=== PATIENT | female | born 1980 | race Caucasian/White ===

== ENCOUNTER 2019-11-23 08:02 | Day surgery (SDC) | payer OTHER ==
[2019-11-22 08:56] VITALS: BMI 25.9
[2019-11-23] MEDS ORDERED: IBUPROFEN 400 MG TABLET (FP) PO PRN (09:27)
[2019-11-23] MEDS ORDERED: ACETAMINOPHEN 325 MG TABLET (FP) PO PRN (09:27)
--- NOTE | 2019-11-23 09:27 | HP ---
History & Physical Update - History History: No Change - Physical Physical: No Change - Assessment Assessment: No Change - Plan Plan: No Change (NO change in HP)
[2019-11-23] MEDS ORDERED: MIDAZOLAM HCL 2 MG/2 ML SINGLE DOSE VIAL ONE (10:05)
[2019-11-23 12:01] VITALS: TEMP 98
[2019-11-23] MEDS ORDERED: ACETAMINOPHEN 325 MG TABLET (FP) ONE (13:17)
[2019-11-23] MEDS ORDERED: SUCCINYLCHOLINE CHLORIDE 200 MG/10 ML SYRINGE ONE (13:19)
[2019-11-23] MEDS ORDERED: PROPOFOL 20 ML ONE (13:19)
--- NOTE | 2019-11-23 14:04 | OP ---
Operative Note - Note: Operative Date: 11/23/19 Pre-Operative Diagnosis: submucosal myoma. anemia. menorrhagia Operation: hysteroscopic myomectomy. SUction DC Findings: Large submucowal myoma seen Post-Operative Diagnosis: Same as Pre-op Surgeon: Cynthia Huizar Anesthesia: General Estimated Blood Loss (mls): 50
[2019-11-23 14:25] VITALS: BP 126/76; PULSE 72
--- NOTE | 2019-11-24 09:40 | OP ---
DATE OF OPERATION: 11/23/2019 PREOPERATIVE DIAGNOSES: Submucosal myoma and anemia, menorrhagia. OPERATION: Hysteroscopic myomectomy, suction dilation and curettage. FINDINGS: A large submucosal myoma, approximately 3 cm, was seen. POSTOPERATIVE DIAGNOSES: Submucosal myoma and anemia, menorrhagia. SURGEON: Cynthia Huizar MD ANESTHESIA: General. ESTIMATED BLOOD LOSS: 50 mL. PROCEDURE: Patient was taken to the operating room and placed in dorsal lithotomy position, prepped and draped in the usual sterile fashion. Timeout was performed in accordance with hospital. regulations. Speculum was placed in the vagina. Anterior lip of the cervix grasped with a single-tooth tenaculum. Cervix was then dilated to accommodate the operative hysteroscope. Operative hysteroscope was inserted and visualization revealed a large 3-cm submucosal myoma. Cautery and cutting of the myoma were done. Large amounts of submucosal myoma were removed and submitted. Suction D&C was done. This procedure was repeated about 5 times. A large amount of myoma had been removed from the endometrial cavity. However, due to a deficit of approximately 800 mL procedure was stopped and most of the myoma had been removed. Some small amounts of myoma left inside, but procedure was stopped due to deficit . Will see how patient does and return to the operating room if a 2nd procedure is needed. All instruments were then removed after the final suction D&C was performed. Hemostasis was achieved. Estimated blood loss was 50 mL. Patient had tolerated procedure well and was taken to recovery room in stable condition. CYNTHIA HUIZAR M.D. [id number]
--- NOTE | 2019-11-24 18:12 | PATH ---
Surgical Pathology Report Patient Name: RADHA BROWER [facility]. Rec. #: [id number] /Age/Gender: 1980 (Age: 39) / F Account: [id number] Location: [facility] SURGICAL Taken: 11/23/2019 Received: 11/23/2019 Reported: 11/24/2019 Physicians: Cynthia Huizar M.D. Specimen(s) Received SUBMUCOSAL MYOMA/FIBROID Clinical History Submucosal leiomyoma of uterus Final Diagnosis SUBMUCOSAL MYOMA/FIBROID, HYSTEROSCOPIC MYOMECTOMY, SUCTION DILATION AND CURETTAGE: FRAGMENTS OF FIBROMUSCULAR TISSUE CONSISTENT WITH SUBMUCOSAL LEIOMYOMA, SECRETORY ENDOMETRIUM, AND SCANT BENIGN SQUAMOUS EPITHELIUM. Electronically Signed Jane Meyer M.D. Gross Description Received in formalin labeled "submucosal myoma/fibroid," is a 9 g, 5.5 x 4.5 x 0.7 cm aggregate of bower-pink fragments of firm tissue, consistent with morcellated fibroid. Contact Center Director sections are submitted in 5 cassettes. DL/11/23/2019 saudi/11/23/2019
== END 2019-11-23 14:27 | disposition home or self-care (01) ==
LOC: JASU-SURG 08:02
PROVIDERS: ATTEND Obstetrics & Gynecology
PROC: 0UDB8ZZ Extraction of Endometrium, Via Natural or Artificial Opening Endoscopic (ICD-10-PCS; 2019-11-23)
PROC: 0UB98ZZ Excision of Uterus, Via Natural or Artificial Opening Endoscopic (ICD-10-PCS; principal; 2019-11-23 10:00)
PROC: 0UB98ZZ Excision of Uterus, Via Natural or Artificial Opening Endoscopic (ICD-10-PCS; 2019-11-23 10:00)
DX: D25.0 Submucous leiomyoma of uterus (principal); D64.9 Anemia, unspecified; N92.0 Excessive and frequent menstruation with regular cycle
CPT/HCPCS: 86850; 86900; 86901; 88305-TC; 94760

== ENCOUNTER 2023-02-26 04:13 | Day surgery (SDC) | payer OTHER ==
[2023-02-24 14:59] VITALS: BMI 28.6
[2023-02-26] MEDS ORDERED: DEXAMETHASONE SOD PHOSPHATE 10 MG/1 ML VIAL ONE (07:20)
[2023-02-26] MEDS ORDERED: ACETAMINOPHEN 500 MG TABLET (FP) PO PRN (08:46)
[2023-02-26] MEDS ORDERED: LIDOCAINE HCL 1% PRESERVATIVE FREE - 30ML VIAL IJ ONE ×2 (11:54→12:14)
[2023-02-26] MEDS ORDERED: IOHEXOL 180 MG/1 ML ML IJ ONE ×3 (11:56→12:15)
[2023-02-26] MEDS ORDERED: DEXAMETHASONE SOD PHOSPHATE 10 MG/1 ML VIAL IVPUSH ONE ×3 (11:56→12:15)
[2023-02-26 12:41] VITALS: RESP 18; TEMP 98.4
[2023-02-26 13:02] VITALS: BP 134/86; PULSE 89
== END 2023-02-26 13:03 | disposition home or self-care (01) ==
LOC: JASU-SURG 04:13
PROVIDERS: ATTEND Pain Medicine Pain Medicine
PROC: 3E0R33Z Introduction of Anti-inflammatory into Spinal Canal, Percutaneous Approach (ICD-10-PCS; principal; 2023-02-26 11:00)
DX: M54.12 Radiculopathy, cervical region (principal)
CPT/HCPCS: 76000-TC-FY; 81025; J1100

== ENCOUNTER 2023-04-16 05:06 | Day surgery (SDC) | payer OTHER ==
[2023-04-09 12:56] VITALS: BMI 28.6
[2023-04-16] MEDS ORDERED: LIDOCAINE HCL/PF 1% SDV 5ML VIAL ONE (07:09)
[2023-04-16] MEDS ORDERED: BUPIVACAINE HCL/PF 0.5% (5MG/ML) 10 ML VIAL ONE (07:09)
[2023-04-16] MEDS ORDERED: LIDOCAINE 1% P/F 10 MG/ML VIAL INF ONE (07:44)
[2023-04-16] MEDS ORDERED: BUPIVACAINE HCL/PF 0.5% (5MG/ML) 10 ML VIAL IJ ONE ×2 (07:44→11:22)
[2023-04-16] MEDS ORDERED: ACETAMINOPHEN 500 MG TABLET (FP) PO PRN (08:03)
[2023-04-16] MEDS ORDERED: DEXAMETHASONE SOD PHOSPHATE 10 MG/1 ML VIAL ONE (11:16)
[2023-04-16 11:53] VITALS: RESP 18
[2023-04-16 13:12] VITALS: BP 131/79; PULSE 85; TEMP 98
== END 2023-04-16 12:30 | disposition home or self-care (01) ==
LOC: JASU-SURG 05:06
PROVIDERS: ATTEND Pain Medicine Pain Medicine
PROC: 3E0T33Z Introduction of Anti-inflammatory into Peripheral Nerves and Plexi, Percutaneous Approach (ICD-10-PCS; 2023-04-16)
PROC: 3E0T3BZ Introduction of Anesthetic Agent into Peripheral Nerves and Plexi, Percutaneous Approach (ICD-10-PCS; principal; 2023-04-16 11:45)
DX: M47.812 Spondylosis without myelopathy or radiculopathy, cervical region (principal)
CPT/HCPCS: 76000-TC-FY; 81025; J1100

== ENCOUNTER 2023-05-14 04:14 | Day surgery (SDC) | payer OTHER ==
[2023-05-12 17:04] VITALS: BMI 28.3
[~2023-05-14 04:14] MED LIST: BUPIVACAINE HCL/PF 0.5% (5MG/ML) 10 ML VIAL IJ ONE
[2023-05-14] MEDS ORDERED: ACETAMINOPHEN 500 MG TABLET (FP) PO PRN (08:25)
[2023-05-14 12:57] VITALS: RESP 18
[2023-05-14] MEDS ORDERED: BUPIVACAINE HCL/PF 0.5% (5MG/ML) 10 ML VIAL IJ ONE (14:08)
[2023-05-14 15:23] VITALS: BP 122/83; PULSE 78; TEMP 98
== END 2023-05-14 15:15 | disposition home or self-care (01) ==
LOC: JASU-SURG 04:14
PROVIDERS: ATTEND Pain Medicine Pain Medicine
PROC: 3E0T33Z Introduction of Anti-inflammatory into Peripheral Nerves and Plexi, Percutaneous Approach (ICD-10-PCS; 2023-05-14)
PROC: 3E0T3BZ Introduction of Anesthetic Agent into Peripheral Nerves and Plexi, Percutaneous Approach (ICD-10-PCS; principal; 2023-05-14 14:30)
DX: M47.812 Spondylosis without myelopathy or radiculopathy, cervical region (principal)
CPT/HCPCS: 76000-TC-FY; 81025

== ENCOUNTER 2023-06-15 04:32 | Day surgery (SDC) | payer OTHER ==
[2023-06-10 12:11] VITALS: BMI 28.6
[2023-06-15] MEDS ORDERED: BUPIVACAINE HCL/PF 0.5% (5MG/ML) 10 ML VIAL ONE (07:29)
[2023-06-15] MEDS ORDERED: LIDOCAINE HCL/PF 2% SDV 5ML VIAL ONE (07:29)
[2023-06-15 09:31] VITALS: RESP 18
[2023-06-15] MEDS ORDERED: LIDOCAINE 1% P/F 10 MG/ML VIAL INF ONE (11:35)
[2023-06-15] MEDS ORDERED: BUPIVACAINE HCL/PF 0.75% 10 ML VIAL NR ONE (11:36)
[2023-06-15] MEDS ORDERED: LIDOCAINE HCL/PF 2% SDV 5ML VIAL INF ONE (11:37)
[2023-06-15] MEDS ORDERED: DEXAMETHASONE SOD PHOSPHATE 10 MG/1 ML VIAL IVPUSH ONE (11:37)
[2023-06-15] MEDS ORDERED: ACETAMINOPHEN 500 MG TABLET (FP) PO PRN (13:04)
[2023-06-15 15:11] VITALS: TEMP 98.7
[2023-06-15 15:12] VITALS: BP 139/82; PULSE 78
== END 2023-06-15 12:28 | disposition home or self-care (01) ==
LOC: JASU-SURG 04:32
PROVIDERS: ATTEND Pain Medicine Pain Medicine
PROC: 01513ZZ Destruction of Cervical Nerve, Percutaneous Approach (ICD-10-PCS; principal; 2023-06-15 11:00)
DX: M47.812 Spondylosis without myelopathy or radiculopathy, cervical region (principal)
CPT/HCPCS: 76000-TC-FY; 81025; J1100

== ENCOUNTER 2023-07-16 04:49 | Day surgery (SDC) | payer OTHER ==
[2023-07-14 13:31] VITALS: BMI 27.7
[~2023-07-16 04:49] MED LIST changes: +DEXAMETHASONE SOD PHOSPHATE 10 MG/1 ML VIAL IVPUSH ONE; +LIDOCAINE 1% P/F 10 MG/ML VIAL INF ONE; +LIDOCAINE HCL/PF 2% SDV 5ML VIAL INF ONE
[2023-07-16] MEDS ORDERED: LIDOCAINE HCL/PF 2% SDV 5ML VIAL ONE (07:12)
[2023-07-16] MEDS ORDERED: BUPIVACAINE HCL/PF 0.5% (5MG/ML) 10 ML VIAL ONE (07:12)
[2023-07-16] MEDS ORDERED: DEXAMETHASONE SOD PHOSPHATE 10 MG/1 ML VIAL ONE (07:13)
[2023-07-16] MEDS ORDERED: LIDOCAINE HCL/PF 1% SDV 5ML VIAL ONE (07:13)
[2023-07-16 11:11] VITALS: RESP 18; TEMP 97.8
[2023-07-16 11:19] VITALS: BP 130/87; PULSE 72
[2023-07-16] MEDS ORDERED: ACETAMINOPHEN 500 MG TABLET (FP) PO PRN (12:47)
== END 2023-07-16 09:52 | disposition home or self-care (01) ==
LOC: JASU-SURG 04:49
PROVIDERS: ATTEND Pain Medicine Pain Medicine
PROC: 01553ZZ Destruction of Median Nerve, Percutaneous Approach (ICD-10-PCS; principal; 2023-07-16 09:00)
DX: M47.812 Spondylosis without myelopathy or radiculopathy, cervical region (principal)
CPT/HCPCS: 76000-TC-FY; 81025; J1100